=== PATIENT | male | born 1975 | race Two or more races ===

== ENCOUNTER 2018-12-15 19:21 | Inpatient (IN) | payer MEDICAID, OTHER ==
[~2018-12-15] VITALS: Ht 175.3 cm; Wt 80.3 kg
[2018-12-15 20:03] LABS: BASOPHILS % (AUTO) 0.4 % (0.0-2.0); EOSINOPHILS % (AUTO) 0.1 % (0.0-6.0); HEMATOCRIT 47 % (39-51); HEMOGLOBIN 15.8 g/dL (13.5-17.5); LYMPHOCYTES # (AUTO) 1.8 /CMM (0.8-4.8); LYMPHOCYTES % (AUTO) 22.7 % (20.0-44.0); MEAN CORPUSCULAR HGB CONC 34 g/dl (31.0-36.0); MEAN CORPUSCULAR VOLUME 89 fL (80-96); MONOCYTES # (AUTO) 0.4 /CMM (0.1-1.30); MONOCYTES % (AUTO) 5.1 % (2.0-12.0); NEUTROPHILS # (AUTO) 5.6 /CMM (1.8-8.9); NEUTROPHILS % (AUTO) 71.7 % (43.0-81.0); PLATELET COUNT (AUTO) 226 /CMM (150-450); RED BLOOD CELL COUNT(AUTO) 5.24 MIL/uL (4.5-6.0); WHITE BLOOD COUNT (AUTO) 7.8 K/uL (4.3-11.0)
--- NOTE | 2018-12-15 20:06 | NUR ---
BIB FAMILY. TO ER BED 3. AAOX4. NAD NOTED, BREATHING EVEN AND UNLABORED. AMBULATORY. C/O LEFT LOWER EXT AND LEFT UPPER EXT WEAKNESS AND NUMBNESS X 1 WEEK. PT CAME FROM MD APPT TODAY. NO NEURO DEFICIT NOTED UPON ASSESSMENT. MD AT BEDSIDE. ORDERS RECEIVED
[2018-12-15 20:12] LABS: CALCIUM, SERUM 9.2 mg/dL (8.5-10.1); CARBON DIOXIDE 28 mmol/L (21-32); CHLORIDE 104 mmol/L (98-107); CREATININE 1.2 mg/dL (0.6-1.3); GLUCOSE 145 mg/dL (74-106); POTASSIUM 3.5 mmol/L (3.5-5.1); SODIUM SERUM 141 mmol/L (136-145); UREA NITROGEN, BLOOD 13 mg/dL (7-18)
[2018-12-15 20:18] LABS: ALANINE AMINOTRANSFERASE 24 U/L (12-78); ALBUMIN 4.1 g/dL (3.4-5.0); ALKALINE PHOSPHATASE 76 U/L (46-116); ASPARTATE AMINOTRANSFERASE 15 U/L (15-37); BILIRUBIN,DIRECT 0.1 mg/dL (0.0-0.2); BILIRUBIN,TOTAL 0.6 mg/dL (0.2-1.0); TOTAL PROTEIN, SERUM 7.2 g/dL (6.4-8.2)
--- NOTE | 2018-12-15 22:02 | NUR ---
BED ASSIGNMENT: 320-1 TELE
--- NOTE | 2018-12-15 22:09 | NUR ---
REPORT [facility] MECHANIC TO [facility] FOR [facility]. GOING TO 320-1
[2018-12-15 22:45] VITALS: BP 132/88
--- NOTE | 2018-12-15 22:45 | NUR ---
RECEIVED PATIENT FROM ER FOR DX RIGHT SIDED PARESTHESIA. AO X 3, ABLE TO MAKE NEEDS KNOWN. NO ACUTE DISTRESS. C/O OF DIZZINESS WITH SUDDEN CHANGE IN POSITION. DENIES ANY PAIN AT THIS TIME. TELE READING SINUS RHYTHM HR 66. IV SITE PATENT, INTACT; FLUSHED. SKIN INTACT. SAFETY REMINDERS GIVEN. ON LOW BED WITH BILATERAL UPPER SIDE RAILS UP. CALL [facility] WITHIN EASY REACH. WILL CONTINUE TO MONITOR.
--- NOTE | 2018-12-15 23:00 | NUR ---
PT TRANSPORTED TO UNIT W/ RN AND EMT AT BEDSIDE W/ ACLS PROTOCOL. NAD NOTED DURING TRANSPORT.
[2018-12-15] MEDS ORDERED: MORPHINE SULFATE INJ 2 MG/ML DISP.SYRIN IV PRN (23:30)
[2018-12-15] MEDS ORDERED: ZOLPIDEM TARTRATE 5 MG TABLET PO PRN (23:30)
[2018-12-15] MEDS ORDERED: MAGNESIUM HYDROXIDE 30 ML UDC PO PRN (23:30)
[2018-12-15] MEDS ORDERED: MAG HYDROX/AL HYDROX/SIMETH 30 ML UDC PO PRN (23:30)
[2018-12-15] MEDS ORDERED: ACETAMINOPHEN 325 MG TABLET PO PRN (23:30)
[2018-12-15] MEDS ORDERED: ONDANSETRON HCL/PF 4 MG/2 ML VIAL IVP PRN (23:30)
[2018-12-15] MEDS ORDERED: HYDROCODONE/APAP 5/325MG 1 EACH TABLET PO PRN (23:30)
--- NOTE | 2018-12-15 23:30 | NUR ---
PATIENT ANNOUNCED THAT HE WANTS TO LEAVE. PATIENT EDUCATED ON RISKS OF LEAVING AMA AND BENEFITS OF STAYING IN HOSPITAL. PATIENT INSISTED ON LEAVING. IV DISCONTINUED. TELE LEADS REMOVED. PATIENT IS ACCOMPANIED BY AND SON. ADELE TAN NP NOTIFIED OF INCIDENT. WILL NOTIFY [employer] LEAD.
--- NOTE | 2018-12-15 23:35 | NUR ---
PATIENT LEFT HOSPITAL WITH AND SON IN STABLE CONDITION.
== END 2018-12-15 23:35 | disposition left against medical advice (07) | DRG 58 ==
LOC: ER 19:23 → TELE 22:20
PROVIDERS: ADMIT Nurse Practitioner Acute Care; ATTEND Nurse Practitioner Acute Care
DX: R20.2 Paresthesia of skin (principal); R27.0 Ataxia, unspecified; R51 Headache; R73.9 Hyperglycemia, unspecified; Z85.22 Personal history of malignant neoplasm of nasal cavities, middle ear, and accessory sinuses
CPT/HCPCS: 36415; 70450-TC; 71045-TC; 80048-TC; 80076-TC; 84484-TC; 85025-TC; 85730-TC; A6403; G0378